=== PATIENT | female | born 1975 | race Caucasian/White ===

== ENCOUNTER 2024-06-06 10:38 | Emergency (ER) | payer MEDICAID ==
[~2024-06-06] VITALS: Ht 154.9 cm; Wt 63.6 kg
[2024-06-06] MEDS: ketorolac trometh 15mg/ml vial 15 MG/ML ML IV ONE (11:47)
[2024-06-06 12:35] LABS: BASOPHILS % (AUTO) 0.7 % (0-1); EOSINOPHILS # (AUTO) 0.1 X10'3 (0-0.9); EOSINOPHILS % (AUTO) 1.1 % (0-6); HEMATOCRIT 39.5 % (35.0-45.0); HEMOGLOBIN 13.2 g/dl (12.0-16.0); LYMPHOCYTES % (AUTO) 31.9 % (21-51); MEAN CORPUSCULAR HEMOGLOBIN 32.4 PG (27.0-31.0); MEAN CORPUSCULAR HGB CONC 33.5 g/dL (33.0-36.5); MEAN CORPUSCULAR VOLUME 96.7 FL (78-98); MONOCYTES # (AUTO) 0.4 X10'3 (0-0.9); MONOCYTES % (AUTO) 5.8 % (2-12); NEUTROPHILS # (AUTO) 3.8 X10'3 (1.8-7.7); NEUTROPHILS % (AUTO) 60.5 % (42-75); PLATELET COUNT 213 X10'3 (140-440); RED BLOOD COUNT 4.08 X10'6 (4.20-5.60); RED CELL DISTRIBUTION WIDTH 13.3 % (11.5-14.5); WHITE BLOOD COUNT 6.3 X10'3 (4.5-11.0)
[2024-06-06 13:00] LABS: ALANINE AMINOTRANSFERASE 14 U/L (12-78); ALBUMIN/GLOBULIN RATIO 1.1 (1.1-1.5); ALKALINE PHOSPHATASE 47 IU/L (46-116); ANION GAP 12 (8-16); ASPARTATE AMINO TRANSFERASE 14 U/L (10-37); BILIRUBIN,TOTAL 0.5 MG/DL (0.1-1.0); BLOOD UREA NITROGEN 13 MG/DL (7-18); BUN/CREATININE RATIO 14.1 (10.0-20.0); CHLORIDE 106 MMOL/L (99-107); CREATININE 0.92 MG/DL (0.40-0.90); GLUCOSE 89 MG/DL (70-104); SODIUM 138 MMOL/L (135-145); TOTAL CARBON DIOXIDE 20.2 MMOL/L (24-32); TOTAL PROTEIN 7.6 G/DL (6.4-8.2); eCRCL 57 ML/MIN; eGFR 65 ML/MIN
[2024-06-06 13:08] LABS: PRO BRAIN NATRIURETIC PEPTIDE 59 PG/ML (0-125)
[2024-06-06] MEDS ORDERED: ACET-2119 PO (13:25)
[2024-06-06] MEDS ORDERED: IBUP-1984 PO (13:25)
[2024-06-06] MEDS ORDERED: LIDO700A32 TOP (13:26)
[2024-06-06] MEDS: LIDOcaine 5% patch TP ONE (13:29)
[2024-06-06 15:23] VITALS: BP 115/74; PULSE 46; RESP 12; TEMP 98.5; O2SAT 99
== END 2024-06-06 15:25 | disposition home or self-care (01) ==
LOC: ER 10:38
DX: M54.50 Low back pain, unspecified (principal); R00.1 Bradycardia, unspecified; Z88.0 Allergy status to penicillin; Z88.2 Allergy status to sulfonamides
CPT/HCPCS: 36415; 71045; 80053; 83880; 84484; 85025; 93005; 96374; 99285; J1885